=== PATIENT | male | born 1945 | race Caucasian/White ===

== ENCOUNTER → 2016-06-02 | Outpatient (CLI) | payer OTHER, MEDICARE ==
[~2016-06-02] MED LIST: ASPI-435 PO; ASPI81TA28 PO; ATOR10TA88 PO; B-COCAP2 PO; LOSA100T2 PO; MULT-513 PO; NAPR500T3 PO; OMEG10007 PO
== END | disposition home or self-care (01) ==
LOC: C.LAB 11:03
PROVIDERS: ATTEND Internal Medicine Geriatric Medicine
DX: Z11.59 Encounter for screening for other viral diseases (principal)

== ENCOUNTER → 2016-10-01 | Outpatient (CLI) | payer OTHER, MEDICARE ==
[~2016-10-01] MED LIST changes: +ATOR10TA82 PO; -ATOR10TA88 PO
[2016-10-01 11:55] LABS: BASO % 0.3 %; BASO ABS # 0.02 K/uL (0-0.2); COMPLETE YES; EOS % 1.3 %; HEMATOCRIT 46.1 % (42-52); IG% 0.1 %; LYMPH % 17.3 %; LYMPH ABS # 1.33 K/uL (1.2-3.4); MEAN CELL VOLUME 90.9 fL (80-100); MEAN CORPUSCULAR HEMOGLOBIN 30.6 pg (25-34); MEAN CORPUSCULAR HGB CONC 33.6 g/dl (32-36); MEAN PLATELET VOLUME 11.1 fL (7.4-10.4); MONO % 6.5 %; NEUT % 74.5 %; PLATELET COUNT 133 K/uL (130-400); RED BLOOD COUNT 5.07 M/uL (4.7-6.1); WHITE BLOOD COUNT 7.71 K/uL (4.8-10.8)
[2016-10-01 12:02] LABS: ESTIMATED AVERAGE GLUCOSE 120 mg/dl; HA1C FLAG Normal (Normal)
[2016-10-01 12:03] LABS: BLOOD UREA NITROGEN 22 mg/dl (7-18); CARBON DIOXIDE 30 mmol/L (21-32); CHLORIDE 106 mmol/L (98-107); GLUCOSE 99 mg/dl (70-99); POTASSIUM 3.7 mmol/L (3.5-5.1); SODIUM 142 mmol/L (136-145)
[2016-10-01 12:13] LABS: THYROID STIMULATING HORMONE 0.969 uIu/ml (0.300-4.500)
[2016-10-01 12:19] LABS: CALCIUM 8.9 mg/dl (8.5-10.1)
== END | disposition home or self-care (01) ==
LOC: C.LABBFT 08:47
PROVIDERS: ATTEND Internal Medicine Geriatric Medicine
DX: I10 Essential (primary) hypertension (principal); R73.9 Hyperglycemia, unspecified; Z86.69 Personal history of other diseases of the nervous system and sense organs; G47.30 Sleep apnea, unspecified; M19.90 Unspecified osteoarthritis, unspecified site; F41.8 Other specified anxiety disorders

== ENCOUNTER → 2017-01-28 | Day surgery (SDC) | payer OTHER, MEDICARE ==
[2017-01-20 12:36] VITALS: Ht 167.6 cm; Wt 101.8 kg
[~2017-01-28] VITALS: Ht 167.6 cm; Wt 101.8 kg
[~2017-01-28] MED LIST changes: -ASPI81TA28 PO; -ATOR10TA82 PO; +ATOR10TA88 PO; -B-COCAP2 PO; +LIDOCAINE HCL 2% 2 ML VIAL (20MG/ML) ONE; +MIDAZOLAM HCL 1 MG/ML 2ML VIAL ONE; -NAPR500T3 PO; -OMEG10007 PO; +PROPOFOL IV EMULSION 10 MG/ML 20 ML VIAL IV ONE
--- NOTE | 2017-01-28 08:47 | Endo History and Physical ---
History & Physical Date of Service: Jan 28, 2017. Chief Complaint: Family history of colon cancer (Father) Referring Physician: Gary Hurst History of Present Illness 71 yo CM who presents for colonoscopy secondary to family history of colon cancer. Past Surgical History Hx Cardiac Surgery: No Hx Internal Defibrillator: No Hx Pacemaker: No Hx Abdominal Surgery: No Hx of Implantable Prosthesis: No Hx Post-Op Nausea and Vomiting: No Hx Cancer Surgery: No Hx Thoracic Surgery: No Hx Orthopedic: Yes (LT/RT CTR) Hx Urinary Tract Surgery: No Family History Colon CA Social History Smoking Status: Never Smoker Hx Substance Use: No Hx Alcohol Use: No Allergies Coded Allergies: No Known Allergies (Unverified , 01/28/17) Current Medications Reported Home Medications Medications Dose Route/Sig Max Daily Dose Days Date Category Dose Instructions Aspirin 81 (Aspirin) 81 Mg Tab 1 Tab PO QPM 01/20/17 Reported Lipitor (Atorvastatin Calcium) 10 Mg Tab 10 Mg PO QPM 01/20/17 Reported Mvi With Minerals (Multivitamins/Minerals) Tab 1 Tab PO QAM 04/29/14 Reported Hyzaar (Losartan Potassium & Hydrochlo) 1 Tab Tab 1 Tab PO QAM 04/29/14 Reported 100-25 MG Vital Signs Weight (Kilograms): 101.82 Height (Feet): 5 Height (Inches): 6 Physical Exam General Appearance: WD/WN, no apparent distress Respiratory/Chest: Auscultation: breath sounds normal Cardiovascular: Heart Auscultation: RRR Abdomen: Bowel Sounds: normal Inspection & Palpation: soft, non-distended, no tenderness, guarding & rebound Assessment and Plan Assessment: 71 yo CM who presents for colonoscopy secondary to family history of colon cancer. Plan: Proceed with colonoscopy.
--- NOTE | 2017-01-28 09:47 | GI REPORT ---
Procedure Date: 01/28/2017 8:47 AM Procedure: Colonoscopy Indications: Family history of colon cancer in a first-degree relative Medicines: Monitored Anesthesia Care Complications: No immediate complications. Estimated Blood Loss: Estimated blood loss: none. Procedure: Pre-Anesthesia Assessment: - Prior to the procedure, a History and Physical was performed, and patient medications and allergies were reviewed. The patient's tolerance of previous anesthesia was also reviewed. The risks and benefits of the procedure and the sedation options and risks were discussed with the patient. All questions were answered, and informed consent was obtained. Prior Anticoagulants: The patient has taken aspirin, last dose was 5 days prior to procedure. ASA Grade Assessment: II - A patient with mild systemic disease. After reviewing the risks and benefits, the patient was deemed in satisfactory condition to undergo the procedure. After I obtained informed consent, the scope was passed under direct vision. Throughout the procedure, the patient's blood pressure, pulse, and oxygen saturations were monitored continuously. The scope was introduced through the anus and advanced to the terminal ileum. The colonoscopy was performed without difficulty. The patient tolerated the procedure well. The quality of the bowel preparation was good. The terminal ileum, ileocecal valve, appendiceal orifice, and rectum were photographed. Findings: A 4 mm polyp was found in the sigmoid colon. The polyp was sessile. The polyp was removed with a cold snare. Resection and retrieval were complete. Multiple small-mouthed diverticula were found in the sigmoid colon. Anal papilla(e) were hypertrophied. Biopsies were taken with a cold forceps for histology. Non-bleeding internal hemorrhoids were found during retroflexion. The hemorrhoids were small. Impression: - One 4 mm polyp in the sigmoid colon, removed with a cold snare. Resected and retrieved. - Diverticulosis in the sigmoid colon. - Anal papilla(e) were hypertrophied. Biopsied. - Non-bleeding internal hemorrhoids. Recommendation: - Resume previous diet. - Continue present medications. - Await pathology results. - Return to primary care physician as previously scheduled. Amadou Gonzalez DO 01/28/2017 9:46:56 AM This report has been signed electronically. Note Initiated On: 01/28/2017 8:47 AM I attest to the content of the Intraoperative Record and orders documented therein, exceptions below
--- NOTE | 2017-01-28 09:49 | Anesthesiology Progress Note ---
Anesthesia Post Op Note Date & Time Jan 28, 2017 at 09:48 Vital Signs Pain Intensity: 0 Vital Signs Past 12 Hours Date Time Temp Pulse Resp B/P (MAP) Pulse Ox O2 Delivery O2 Flow Rate FiO2 01/28/17 09:38 37.0 79 16 103/52 (69) 94 Room Air 01/28/17 09:00 37.0 60 18 153/73 (99) 96 Room Air Notes Mental Status: alert / awake / arousable, participated in evaluation Pt Amnestic to Procedure: Yes Nausea / Vomiting: adequately controlled Pain: adequately controlled Airway Patency, RR, SpO2: stable & adequate BP & HR: stable & adequate Hydration State: stable & adequate Anesthetic Complications: no major complications apparent
[2017-01-28 10:08] VITALS: BP 110/61; PULSE 58; O2SAT 95
--- NOTE | 2017-01-28 10:25 | Discharge Instructions ---
Endoscopy Patient Instructions Date / Procedure(s) Performed Jan 28, 2017. Colonoscopy Allergy Information Coded Allergies: No Known Allergies (Unverified , 01/28/17) Discharge Date / Findings Jan 28, 2017. Colon polyp Diverticulosis Internal hemorrhoids Hypertrophied Anal papilla Medication Instructions Stopped Medication(s): Aspirin last taken 01/23/17 Multivitamin last taken 01/23/17 OK to resume all medications today as prescribed Reported Home Medications Medications Dose Route/Sig Max Daily Dose Days Date Category Dose Instructions Aspirin 81 (Aspirin) 81 Mg Tab 1 Tab PO QPM 01/20/17 Reported Lipitor (Atorvastatin Calcium) 10 Mg Tab 10 Mg PO QPM 01/20/17 Reported Mvi With Minerals (Multivitamins/Minerals) Tab 1 Tab PO QAM 04/29/14 Reported Hyzaar (Losartan Potassium & Hydrochlo) 1 Tab Tab 1 Tab PO QAM 04/29/14 Reported 100-25 MG Provider Instructions Activity Restrictions - No exercising or heavy lifting for 24 hours. - Do not drink alcohol the day of the procedure. - Do not drive a car or operate machinery until the day after the procedure. - Do not make any important decisions or sign important papers in 24 hours after the procedure. Following Day: - Return to full activity which may include returning to work/school. Diet Start your diet with liquids and light foods (jello, soup, juice, toast). Then eat your usual diet if not nauseated. Treatment For Common After Affects For mild abdominal pain, bloating, or excessive gas: - Rest - Eat lightly - Lie on right side Follow-Up Information Follow-up with Gary Hurst as scheduled Anesthesia Information What You Should Know You have had a procedure that required some medicine to reduce anxiety and discomfort. This treatment is called moderate sedation. After receiving the treatment, you may be sleepy, but you will be able to breathe on your own. The effects of the treatment may last for several hours. Follow these instructions along with Activity/Diet recommendations noted above: * Do NOT do anything where dizziness or clumsiness would be dangerous. * Rest quietly at home today, then you can be up and about tomorrow. * Have a responsible person stay with you the rest of today. * You may have had an I.V. today. If so, you may take the dressing off later today. Recommendations Call your doctor if: * Trouble breathing * Continuous vomiting for more than 24 hours * Temperature above 101 degrees * Severe abdominal pain or bloating * Pain not relieved by pain medicine ordered * There is increased drainage or redness from any incision * A large amount of rectal bleeding greater than 2-3 tablespoons. (If you had a polyp/s removed or have hemorrhoids, a small amount of blood - from the rectum is to be expected.) * You have any unanswered questions or concerns. IN THE EVENT OF A SERIOUS EMERGENCY, GO TO THE NEAREST EMERGENCY ROOM Your discharge instructions were prepared by provider Amadou Gonzalez. Patient Instructions Signature Page Jordi Ricks Patient (or Guardian) Signature/Date: I have read and understand the instructions given to me by my caregivers. Caregiver/RN/Doctor Signature/Date: The above-named patient and/or guardian has received patient instructions on this date. + Original Patient Signature Page (only) stays with chart. Please make copy for patient.
== END | disposition home or self-care (01) ==
LOC: C.GI 08:22
PROVIDERS: ATTEND Internal Medicine
DX: Z12.11 Encounter for screening for malignant neoplasm of colon (principal); D12.5 Benign neoplasm of sigmoid colon; K62.9 Disease of anus and rectum, unspecified; K57.30 Diverticulosis of large intestine without perforation or abscess without bleeding; G47.33 Obstructive sleep apnea (adult) (pediatric); K21.9 Gastro-esophageal reflux disease without esophagitis; M19.90 Unspecified osteoarthritis, unspecified site; K64.8 Other hemorrhoids; Z79.82 Long term (current) use of aspirin; Z80.0 Family history of malignant neoplasm of digestive organs

== ENCOUNTER → 2017-06-16 | Outpatient (CLI) | payer OTHER, MEDICARE ==
[~2017-06-16] MED LIST changes: +ATOR10TA82 PO; -ATOR10TA88 PO; -LIDOCAINE HCL 2% 2 ML VIAL (20MG/ML) ONE; -MIDAZOLAM HCL 1 MG/ML 2ML VIAL ONE; -PROPOFOL IV EMULSION 10 MG/ML 20 ML VIAL IV ONE
[2017-06-16 13:54] LABS: BLOOD UREA NITROGEN 23 mg/dl (7-18); CALCIUM 8.9 mg/dl (8.5-10.1); CARBON DIOXIDE 29 mmol/L (21-32); CHOLESTEROL 110 mg/dl (0-200); CREATININE 1.37 mg/dl (0.60-1.40); GLUCOSE 110 mg/dl (70-99); POTASSIUM 3.8 mmol/L (3.5-5.1); SODIUM 139 mmol/L (136-145)
[2017-06-16 13:58] LABS: LDL CHOLESTEROL CALCULATED 45 mg/dl
== END | disposition home or self-care (01) ==
LOC: C.LABBC 09:17
PROVIDERS: ATTEND Internal Medicine Geriatric Medicine
DX: Z00.00 Encounter for general adult medical examination without abnormal findings (principal); I10 Essential (primary) hypertension; R73.9 Hyperglycemia, unspecified; M19.90 Unspecified osteoarthritis, unspecified site

== ENCOUNTER → 2017-09-28 | Outpatient (CLI) | payer OTHER, MEDICARE ==
--- NOTE | 2017-09-28 11:30 | DIAGNOSTIC IMAGING REPORT ---
SACRUM COCCYX MIN 2 VIEWS CLINICAL HISTORY: M53.3 SACROCOCCYGEAL DISORDERS, NOT ELSEWHERE CLASSIFIED COMPARISON STUDY: None. FINDINGS: No fractures identified within the sacrum or coccyx. Presacral soft tissues are intact. Sclerosis and small osteophytes within the bilateral sacroiliac joints, left greater than right. This is consistent with mild right and moderate left degenerative change. IMPRESSION: 1. No fractures identified within the sacrum or coccyx. 2. Bilateral sacroiliac joint osteoarthritis, left greater than right. Electronically signed by: Ubaldo Maldonado M.D. 09/28/2017 11:29 AM Dictated Date/Time: 09/28/2017 11:28 AM
== END | disposition home or self-care (01) ==
LOC: C.RAD1850 11:11
PROVIDERS: ATTEND Family Medicine
DX: M53.3 Sacrococcygeal disorders, not elsewhere classified (principal)

== ENCOUNTER → 2017-12-26 | Outpatient (CLI) | payer OTHER, MEDICARE ==
--- NOTE | 2017-12-26 16:07 | DIAGNOSTIC IMAGING REPORT ---
LUMBAR SPINE RADIOGRAPHS CLINICAL HISTORY: Lower back pain. COMPARISON: Sacrum and coccyx radiographs September 28, 2017. FINDINGS: Alignment of the lumbar spine is anatomic. Vertebral body heights are maintained. There is no fracture or suspicious lesion. There is mild disc space narrowing at L4-L5. There is moderate anterior osteophytosis. Moderate multilevel facet arthrosis is present. Extensive atherosclerotic calcification of the abdominal aorta is noted. IMPRESSION: 1. No lumbar spine fracture. 2. Mild to moderate multilevel degenerative disc and moderate multilevel facet arthrosis. Electronically signed by: Luis A Hendrix M.D. 12/26/2017 4:06 PM Dictated Date/Time: 12/26/2017 4:04 PM
== END | disposition home or self-care (01) ==
LOC: C.RAD 15:34
PROVIDERS: ATTEND Family Medicine
DX: M47.816 Spondylosis without myelopathy or radiculopathy, lumbar region (principal)